=== PATIENT | male | born 1975 | race Caucasian/White ===

== ENCOUNTER 2018-01-14 10:26 | Emergency (ER) | payer OTHER ==
--- NOTE | 2018-01-14 12:33 | UC ---
Lower Extremity/Ankle HPI - HPI Summary HPI Summary: IN-ROOM NOTE: This patient is a 42 year old M [place] [facility] [place] a chief complaint of an aching, burning, and sharp bone pain in LLE above the knee since 2 days ago. Patient describes the pain as usually dull with intermittent and spontaneous episodes of extreme pain. The patient rates the pain 8/10 in severity. Symptoms aggravated by nothing. Symptoms alleviated by nothing. Patient denies abdominal pain, chest pain, and difficulty breathing. His PCP is Vipin Jeffries MD. NOTE: Vital signs stable. Pulse ox 100. 8/10 bone discomfort. Heavy smoker. Patient lives at [facility]. Visit history noncontributory to present complaint. No home medications. NURSES NOTE: arrives with c/o bone pain in his legs x 2 days - History of Current Complaint Chief Complaint: UCGeneralIllness Stated Complaint: LEG PAIN Time Seen by Provider: 01/14/18 12:22 Hx Obtained From: Patient Onset/Duration: Sudden Onset, Lasting Days - 2 days ago, Still Present Severity Initially: Severe Severity Currently: Severe Pain Intensity: 8 Pain Scale Used: 0-10 Numeric Aggravating Factor(s): Nothing Alleviating Factor(s): Nothing Able to Bear Weight: Yes - Allergies/Home Medications Allergies/Adverse Reactions: Allergies Allergy/AdvReac Type Severity Reaction Status Date / Time methylphenidate Allergy Hives Verified 01/14/18 10:37 [From Ritalin] phenobarbital Allergy Hives Verified 01/14/18 10:38 PMH/Surg Hx/FS Hx/Imm Hx Cardiovascular History: Cardiac Disease - Denies GI/ History: Renal Disease - Denies Neurological History: Seizures - as a child - Surgical History Surgical History: None - Family History Known Family History: Positive: Diabetes, Other - hemochromatosis - Social History Occupation: Employed Full-time Lives: Alone Alcohol Use: None Substance Use Type: Marijuana Smoking Status (MU): Heavy Every Day Tobacco Smoker Household Exposure Type: Cigarettes Review of Systems Respiratory: Other - Denies difficulty breathing Cardiovascular: Chest Pain - Denies Gastrointestinal: Abdominal Pain - Denies Musculoskeletal: Other: - aching, burning, and sharp bone pain in LLE above the knee since 2 days ago All Other Systems Reviewed And Are Negative: Yes - Comments Additional Review of Systems Comments: POSITIVE: ACHING, BURNING, AND SHARP BONE PAIN IN LLE ABOVE THE KNEE NEGATIVE: ABDOMINAL PAIN, CHEST PAIN, AND BREATHING. Physical Exam - Summary Physical Exam Summary: Appearance: The patient is well-appearing, is in no pain distress, and is well- nourished. Eyes: Conjunctiva are clear. ENT: The hearing is grossly normal, the pharynx is normal, and the TMs are normal. There is no muffled or hoarse voice. Neck: The neck is supple and there is no lymphadenopathy. Respiratory: The chest is nontender. The lungs are clear, there are normal breath sounds, and there is no respiratory distress. Cardiovascular: Heart is regular rate and rhythm. There is no murmur. Abdomen: The abdomen is soft and nontender. There is no organomegaly. Bowel sounds: present Musculoskeletal: Strength is intact. The patient moves all extremities. EXAM OF LEFT LEG SHOWS TENDERNESS OVER THE DISTAL LEFT QUADRICEPS, JUST ABOVE THE LEFT PATELLA. INCREASED DISCOMFORT WITH DISTENTION AT THE KNEE. Neurological: The patient is alert. Motor and sensory examination grossly intact. Psychological: The patient displays age appropriate behavior Skin: Negative for rashes. Triage Information Reviewed: Yes Vital Signs: Initial Vital Signs Temp 97.8 F 01/14/18 10:33 Pulse 66 01/14/18 10:33 Resp 16 01/14/18 10:33 BP 96/57 01/14/18 10:33 Pulse Ox 100 01/14/18 10:33 Vital Signs Reviewed: Yes Lower Extremity Course/Dx - Course Course Of Treatment: 42 y/o male with increasing discomfort to the upper leg. Examination is consistent with tendinitis. I instructed the patient to use an rodger wrap, take ibuprofen, and use heat in the morning. Use ice after walking during the day. He will follow up with his PCP if he is not improving in 2-3 weeks. - Differential Dx/Diagnosis Differential Diagnosis/HQI/PQRI: Fracture (Closed), Tendonitis Provider Diagnoses: left quadriceps tendinitis Discharge - Sign-Out/Discharge Documenting (check all that apply): Patient Departure All imaging exams completed and their final reports reviewed: No Studies - Discharge Plan Condition: Stable Disposition: HOME Patient Education Materials: Tendinitis (ED) Referrals: Garrett Noble MD [Primary Care Provider] - Additional Instructions: WE DISCUSSED: You have a irritation of the tendon above your left knee. This is probably caused from all the walking you've been doing. This is called a quadriceps tendinitis. Use the Rodger wrap. Use warm moist heat in the morning and ice to this area after he walk. You can also take ibuprofen 2 or 3 times a day, 2 or 3 pills each time for the next few days. [place] way to get better is to rest the area and give it a chance to be less irritated. Try to decrease your exercise for the next few days. Follow-up with your doctor in 2-3 weeks if you are not improving. Recheck sooner for any increased pain or disability. - Attestation Statements Document Initiated by Scribe: Yes Documenting Scribe: Ted Thorne Provider For Whom Scribe is Documenting (Include Credential): Rober Shields MD Scribe Attestation: Ted Waller, scribed for Rober Shields MD on 01/14/18 at 1244.
[2018-01-14 12:59] VITALS: BP 117/70
== END 2018-01-14 12:54 | disposition home or self-care (01) ==
LOC: UCEAST 10:26
DX: M76.892 Other specified enthesopathies of left lower limb, excluding foot (principal); F17.210 Nicotine dependence, cigarettes, uncomplicated
CPT/HCPCS: 36415; 86703; 99202; G0463